=== PATIENT | male | born 1955 | race Caucasian/White ===

== ENCOUNTER → 2016-08-13 11:46 | Outpatient (CLI) | payer OTHER ==
[2016-08-13 12:37] LABS: APPEARANCE HAZY (CLEAR); BACTERIA FEW /hpf (NONE SEEN); BILIRUBIN NEGATIVE (NEGATIVE); CALCIUM OXALATE CRYSTALS OCC /hpf (NONE SEEN); COLOR YELLOW (YELLOW); EPITHELIAL CELLS 0-5 /hpf (0-5); GLUCOSE NEGATIVE (NEGATIVE); KETONE NEGATIVE (NEGATIVE); LEUKOCYTE ESTERASE 2+ (NEGATIVE); MUCUS <1+ /lpf (NONE SEEN); NITRITE NEGATIVE (NEGATIVE); PROTEIN NEGATIVE (NEGATIVE); RED CELLS - URINE OCC /hpf (0-5); SPECIFIC GRAVITY 1.015 (1.005-1.020); UROBILINOGEN NORMAL (NORMAL)
[2016-08-13 12:40] LABS: ALBUMIN 3.7 g/dL (3.4-5.0); ALKALINE PHOSPHATASE 85 U/L (46-116); ALT (SGPT) 10 U/L (10-68); BILIRUBIN - TOTAL 0.52 mg/dL (0.2-1.3); CALC OSMOLALITY 280 mosm/kg (275-300); CALCIUM 8.7 mg/dL (8.5-10.1); CARBON DIOXIDE 23.7 mmol/L (21.0-32.0); CHLORIDE - SERUM 107 mmol/L (98-107); CREATININE - SERUM 0.8 mg/dL (0.6-1.3); GLUCOSE 91 mg/dL (74-106); POTASSIUM - SERUM 3.6 mmol/L (3.5-5.1); PROTEIN - SERUM 7.2 g/dL (6.4-8.2); SODIUM 141 mmol/L (136-145); UREA NITROGEN 13 mg/dL (7-18); eGFR NON AFRICAN AMERICAN > 90 mL/min (90-120)
== END | disposition home or self-care (01) ==
LOC: D.LAB 09:00
PROVIDERS: Physical Medicine & Rehabilitation
DX: N20.0 Calculus of kidney (principal)

== ENCOUNTER 2016-12-16 07:26 | Emergency (ER) | payer MEDICARE, OTHER ==
[2016-12-16 08:19] LABS: BASOPHILS 0.4 % (0-2); EOSINOPHILS 5.6 % (0-7); HEMATOCRIT 40.7 % (42.0-54.0); IMMATURE GRANULOCYTES 0.1 % (0-5); LYMPHOCYTES 17.9 % (15-50); MCH 31.7 pg (26.0-34.0); MCHC 34.4 g/dL (31.0-37.0); MCV 92.1 fL (80.0-100.0); MEAN PLATELET VOLUME 10.5 fL (7.4-10.4); MONOCYTES 7.1 % (2-11); NEUTROPHILS 68.9 % (40-80); PLATELET COUNT 177 10x3/uL (130-400); RBC 4.42 10x6/uL (4.20-6.10); RDW 12.3 % (11.5-14.5)
[2016-12-16 08:34] LABS: ALBUMIN 3.6 g/dL (3.4-5.0); ALKALINE PHOSPHATASE 99 U/L (46-116); ALT (SGPT) 13 U/L (10-68); BILIRUBIN - TOTAL 0.19 mg/dL (0.2-1.3); CALC OSMOLALITY 282 mosm/kg (275-300); CALCIUM 8.8 mg/dL (8.5-10.1); CARBON DIOXIDE 25.8 mmol/L (21.0-32.0); CHLORIDE - SERUM 105 mmol/L (98-107); CREATININE - SERUM 0.9 mg/dL (0.6-1.3); GLUCOSE 103 mg/dL (74-106); POTASSIUM - SERUM 4.1 mmol/L (3.5-5.1); PROTEIN - SERUM 7.2 g/dL (6.4-8.2); SODIUM 141 mmol/L (136-145); UREA NITROGEN 19 mg/dL (7-18); eGFR NON AFRICAN AMERICAN > 90 mL/min (90-120)
== END 2016-12-16 08:47 | disposition home or self-care (01) ==
LOC: D.ER 07:26
PROVIDERS: Emergency Medicine
DX: R10.9 Unspecified abdominal pain (principal); K21.9 Gastro-esophageal reflux disease without esophagitis; G47.30 Sleep apnea, unspecified; F17.200 Nicotine dependence, unspecified, uncomplicated; K59.00 Constipation, unspecified; R11.10 Vomiting, unspecified

== ENCOUNTER 2017-02-12 19:37 | Emergency (ER) | payer MEDICARE, OTHER ==
[2017-02-12 20:33] LABS: APPEARANCE SLT CLOUDY (CLEAR); BILIRUBIN NEGATIVE (NEGATIVE); COLOR YELLOW (YELLOW); GLUCOSE NEGATIVE (NEGATIVE); KETONE NEGATIVE (NEGATIVE); LEUKOCYTE ESTERASE TRACE (NEGATIVE); NITRITE NEGATIVE (NEGATIVE); PROTEIN NEGATIVE (NEGATIVE); SPECIFIC GRAVITY 1.015 (1.005-1.020); UROBILINOGEN NORMAL (NORMAL)
[2017-02-12 20:34] LABS: BACTERIA FEW /hpf (NONE SEEN); EPITHELIAL CELLS RARE /hpf (0-5); WHITE CELLS - URINE 0-5 /hpf (0-5)
[2017-02-12 20:37] LABS: BASOPHILS 0.2 % (0-2); EOSINOPHILS 4.2 % (0-7); HEMATOCRIT 40.3 % (42.0-54.0); HEMOGLOBIN 13.6 g/dL (13.5-17.5); IMMATURE GRANULOCYTES 0.1 % (0-5); LYMPHOCYTES 14.2 % (15-50); MCH 31.1 pg (26.0-34.0); MCHC 33.7 g/dL (31.0-37.0); MEAN PLATELET VOLUME 10.7 fL (7.4-10.4); MONOCYTES 9.2 % (2-11); NEUTROPHILS 72.1 % (40-80); PLATELET COUNT 183 10x3/uL (130-400); RBC 4.38 10x6/uL (4.20-6.10); RDW 13.2 % (11.5-14.5)
[2017-02-12 20:54] LABS: ALBUMIN 3.7 g/dL (3.4-5.0); ALKALINE PHOSPHATASE 116 U/L (46-116); ALT (SGPT) 13 U/L (10-68); BILIRUBIN - TOTAL 0.26 mg/dL (0.2-1.3); CALC OSMOLALITY 279 mosm/kg (275-300); CALCIUM 9.1 mg/dL (8.5-10.1); CARBON DIOXIDE 27.6 mmol/L (21.0-32.0); CHLORIDE - SERUM 105 mmol/L (98-107); CREATININE - SERUM 0.9 mg/dL (0.6-1.3); GLUCOSE 96 mg/dL (74-106); POTASSIUM - SERUM 4.5 mmol/L (3.5-5.1); PROTEIN - SERUM 7.1 g/dL (6.4-8.2); SODIUM 139 mmol/L (136-145); UREA NITROGEN 17 mg/dL (7-18); eGFR NON AFRICAN AMERICAN > 90 mL/min (90-120)
== END 2017-02-12 21:20 | disposition home or self-care (01) ==
LOC: D.ER 19:37
PROVIDERS: Family Medicine
DX: N41.9 Inflammatory disease of prostate, unspecified (principal); K21.9 Gastro-esophageal reflux disease without esophagitis

== ENCOUNTER 2017-04-02 12:33 | Emergency (ER) | payer MEDICARE, OTHER | END 2017-04-02 15:57 | disposition home or self-care (01) | LOC: D.ER 12:33 | DX: S99.922A Unspecified injury of left foot, initial encounter (principal); W01.0XXA Fall on same level from slipping, tripping and stumbling without subsequent striking against object, initial encounter; Y93.K1 Activity, walking an animal; Y92.027 Garden or yard of mobile home as the place of occurrence of the external cause; K21.9 Gastro-esophageal reflux disease without esophagitis ==

== ENCOUNTER 2017-04-11 22:46 | Emergency (ER) | payer MEDICARE, OTHER ==
[2017-04-11 23:40] LABS: BASOPHILS 0.2 % (0-2); EOSINOPHILS 3.4 % (0-7); HEMATOCRIT 35.4 % (42.0-54.0); HEMOGLOBIN 12.1 g/dL (13.5-17.5); IMMATURE GRANULOCYTES 0.3 % (0-5); MCH 31.4 pg (26.0-34.0); MCHC 34.2 g/dL (31.0-37.0); MCV 91.9 fL (80.0-100.0); MEAN PLATELET VOLUME 10.1 fL (7.4-10.4); MONOCYTES 10.9 % (2-11); NEUTROPHILS 81.2 % (40-80); RBC 3.85 10x6/uL (4.20-6.10); RDW 13.3 % (11.5-14.5); WBC 6.3 10x3/uL (4.8-10.8)
[2017-04-11 23:42] LABS: PLATELET COUNT 140 10x3/uL (130-400)
[2017-04-12 00:06] LABS: ALBUMIN 3.2 g/dL (3.4-5.0); ALKALINE PHOSPHATASE 86 U/L (46-116); ALT (SGPT) 33 U/L (10-68); CALC OSMOLALITY 283 mosm/kg (275-300); CALCIUM 8.3 mg/dL (8.5-10.1); CARBON DIOXIDE 25.6 mmol/L (21.0-32.0); CHLORIDE - SERUM 106 mmol/L (98-107); CREATININE - SERUM 0.9 mg/dL (0.6-1.3); GLUCOSE 105 mg/dL (74-106); LIPASE 129 U/L (73-393); POTASSIUM - SERUM 3.5 mmol/L (3.5-5.1); PROTEIN - SERUM 6.4 g/dL (6.4-8.2); SODIUM 142 mmol/L (136-145); UREA NITROGEN 15 mg/dL (7-18); eGFR NON AFRICAN AMERICAN > 90 mL/min (90-120)
[2017-04-12 00:11] LABS: APPEARANCE CLEAR (CLEAR); BILIRUBIN NEGATIVE (NEGATIVE); COLOR YELLOW (YELLOW); GLUCOSE NEGATIVE (NEGATIVE); KETONE NEGATIVE (NEGATIVE); NITRITE NEGATIVE (NEGATIVE); PROTEIN NEGATIVE (NEGATIVE); UROBILINOGEN NORMAL (NORMAL)
[2017-04-12 00:14] LABS: BACTERIA MODERATE /hpf (NONE SEEN); EPITHELIAL CELLS 0-5 /hpf (0-5); RED CELLS - URINE 0-5 /hpf (0-5); WHITE CELLS - URINE NSEEN /hpf (0-5)
== END 2017-04-12 03:13 | disposition home or self-care (01) ==
LOC: D.ER 22:46
PROVIDERS: Emergency Medicine
DX: R10.9 Unspecified abdominal pain (principal); K21.9 Gastro-esophageal reflux disease without esophagitis; F17.200 Nicotine dependence, unspecified, uncomplicated

== ENCOUNTER 2017-07-14 03:38 | Emergency (ER) | payer MEDICARE, OTHER ==
[2017-07-14 05:26] LABS: BASOPHILS 0.4 % (0-2); EOSINOPHILS 2.5 % (0-7); HEMATOCRIT 40.2 % (42.0-54.0); HEMOGLOBIN 13.9 g/dL (13.5-17.5); IMMATURE GRANULOCYTES 0.1 % (0-5); LYMPHOCYTES 19.2 % (15-50); MCHC 34.6 g/dL (31.0-37.0); MCV 89.7 fL (80.0-100.0); MEAN PLATELET VOLUME 10.1 fL (7.4-10.4); MONOCYTES 6.9 % (2-11); NEUTROPHILS 70.9 % (40-80); RBC 4.48 10x6/uL (4.20-6.10); RDW 13.2 % (11.5-14.5); WBC 7.3 10x3/uL (4.8-10.8)
[2017-07-14 05:30] LABS: PLATELET COUNT 179 10x3/uL (130-400)
[2017-07-14 05:37] LABS: ALBUMIN 3.8 g/dL (3.4-5.0); ANION GAP 14.3 mmol/L (8-16); BILIRUBIN - TOTAL 0.4 mg/dL (0.2-1.3); CALCIUM 9.1 mg/dL (8.5-10.1); CARBON DIOXIDE 22.6 mmol/L (21.0-32.0); CREATININE - SERUM 1.2 mg/dL (0.6-1.3); POTASSIUM - SERUM 3.9 mmol/L (3.5-5.1); PROTEIN - SERUM 7.5 g/dL (6.4-8.2)
[2017-07-14 06:54] LABS: APPEARANCE CLEAR (CLEAR); BILIRUBIN NEGATIVE (NEGATIVE); COLOR YELLOW (YELLOW); GLUCOSE NEGATIVE (NEGATIVE); KETONE NEGATIVE (NEGATIVE); NITRITE NEGATIVE (NEGATIVE); PROTEIN NEGATIVE (NEGATIVE); SPECIFIC GRAVITY 1.015 (1.005-1.020); UROBILINOGEN NORMAL (NORMAL)
[2017-07-14 06:55] LABS: WHITE CELLS - URINE 0-5 /hpf (0-5)
[2017-07-14 06:56] LABS: BACTERIA FEW /hpf (NONE SEEN); CALCIUM OXALATE CRYSTALS 0-5 /hpf (NONE SEEN); EPITHELIAL CELLS 0-5 /hpf (0-5); HYALINE CAST RARE /lpf (NONE SEEN); MUCUS <1+ /lpf (NONE SEEN); RED CELLS - URINE OCC /hpf (0-5)
== END 2017-07-14 07:14 | disposition home or self-care (01) ==
LOC: D.ER 03:38
PROVIDERS: Family Medicine
DX: R10.9 Unspecified abdominal pain (principal); K21.9 Gastro-esophageal reflux disease without esophagitis; F17.200 Nicotine dependence, unspecified, uncomplicated

== ENCOUNTER 2017-09-12 07:36 | Emergency (ER) | payer MEDICARE, OTHER ==
[2017-09-12 08:17] LABS: BASOPHILS 0.3 % (0-2); EOSINOPHILS 2.4 % (0-7); HEMATOCRIT 42.2 % (42.0-54.0); HEMOGLOBIN 14.6 g/dL (13.5-17.5); IMMATURE GRANULOCYTES 0.2 % (0-5); LYMPHOCYTES 11.3 % (15-50); MCHC 34.6 g/dL (31.0-37.0); MCV 89.6 fL (80.0-100.0); MEAN PLATELET VOLUME 9.9 fL (7.4-10.4); MONOCYTES 6.5 % (2-11); NEUTROPHILS 79.3 % (40-80); PLATELET COUNT 166 10x3/uL (130-400); RBC 4.71 10x6/uL (4.20-6.10); WBC 10.5 10x3/uL (4.8-10.8)
[2017-09-12 08:37] LABS: ALBUMIN 3.6 g/dL (3.4-5.0); ALKALINE PHOSPHATASE 111 U/L (46-116); ALT (SGPT) 15 U/L (10-68); BILIRUBIN - TOTAL 0.42 mg/dL (0.2-1.3); CALC OSMOLALITY 278 mosm/kg (275-300); CALCIUM 8.9 mg/dL (8.5-10.1); CARBON DIOXIDE 22.4 mmol/L (21.0-32.0); CHLORIDE - SERUM 106 mmol/L (98-107); GLUCOSE 110 mg/dL (74-106); LIPASE 83 U/L (73-393); POTASSIUM - SERUM 3.6 mmol/L (3.5-5.1); PROTEIN - SERUM 7.4 g/dL (6.4-8.2); SODIUM 139 mmol/L (136-145); UREA NITROGEN 13 mg/dL (7-18); eGFR NON AFRICAN AMERICAN 80 mL/min (90-120)
[2017-09-12 09:16] LABS: APPEARANCE HAZY (CLEAR); BILIRUBIN NEGATIVE (NEGATIVE); COLOR YELLOW (YELLOW); GLUCOSE NEGATIVE (NEGATIVE); KETONE NEGATIVE (NEGATIVE); NITRITE NEGATIVE (NEGATIVE); PROTEIN NEGATIVE (NEGATIVE); SPECIFIC GRAVITY 1.015 (1.005-1.020); UROBILINOGEN NORMAL (NORMAL)
[2017-09-12 09:20] LABS: BACTERIA MODERATE /hpf (NONE SEEN); EPITHELIAL CELLS 0-5 /hpf (0-5); MUCUS >1+ /lpf (NONE SEEN)
[2017-10-15] MEDS ORDERED: VIBRAMYCIN 100100 MG PO (03:19)
[2017-10-24 20:42] VITALS: BMI 20.4
== END 2017-09-12 09:50 | disposition home or self-care (01) ==
LOC: D.ER 07:36
PROVIDERS: Emergency Medicine
DX: R10.9 Unspecified abdominal pain (principal); N39.0 Urinary tract infection, site not specified; K21.9 Gastro-esophageal reflux disease without esophagitis

== ENCOUNTER 2017-09-22 05:58 | Emergency (ER) | payer MEDICARE, OTHER ==
[2017-09-22 06:24] LABS: BASOPHILS 0.4 % (0-2); EOSINOPHILS 3.5 % (0-7); HEMATOCRIT 43.2 % (42.0-54.0); HEMOGLOBIN 14.6 g/dL (13.5-17.5); IMMATURE GRANULOCYTES 0.1 % (0-5); LYMPHOCYTES 22.7 % (15-50); MCH 30.6 pg (26.0-34.0); MCHC 33.8 g/dL (31.0-37.0); MCV 90.6 fL (80.0-100.0); MONOCYTES 6.2 % (2-11); NEUTROPHILS 67.1 % (40-80); PLATELET COUNT 178 10x3/uL (130-400); RBC 4.77 10x6/uL (4.20-6.10); RDW 13.2 % (11.5-14.5); WBC 8.6 10x3/uL (4.8-10.8)
[2017-09-22 06:47] LABS: ALBUMIN 3.7 g/dL (3.4-5.0); ANION GAP 17.2 mmol/L (8-16); BILIRUBIN - TOTAL 0.2 mg/dL (0.2-1.3); CALCIUM 9.1 mg/dL (8.5-10.1); CARBON DIOXIDE 22.8 mmol/L (21.0-32.0); CREATININE - SERUM 1.2 mg/dL (0.6-1.3); MAGNESIUM - SERUM 2.1 mg/dL (1.8-2.4); PROTEIN - SERUM 7.6 g/dL (6.4-8.2)
[2017-09-22 07:07] LABS: APPEARANCE HAZY (CLEAR); BACTERIA FEW /hpf (NONE SEEN); COLOR ORANGE (YELLOW); EPITHELIAL CELLS 0-5 /hpf (0-5); WHITE CELLS - URINE 0-5 /hpf (0-5)
[2017-09-22 07:08] LABS: MUCUS <1+ /lpf (NONE SEEN)
[2017-09-22 07:20] LABS: AMYLASE - SERUM 57 U/L (25-115); LIPASE 116 U/L (73-393)
[2017-10-15] MEDS ORDERED: VIBRAMYCIN 100100 MG PO (03:19)
[2017-10-24 20:42] VITALS: BMI 20.4
== END 2017-09-22 09:50 | disposition home or self-care (01) ==
LOC: D.ER 05:58
PROVIDERS: Emergency Medicine; Family Medicine
DX: R11.10 Vomiting, unspecified (principal); R19.7 Diarrhea, unspecified; R10.9 Unspecified abdominal pain; R30.0 Dysuria; N30.90 Cystitis, unspecified without hematuria; K21.9 Gastro-esophageal reflux disease without esophagitis; F17.200 Nicotine dependence, unspecified, uncomplicated

== ENCOUNTER 2017-09-24 09:59 | Emergency (ER) | payer MEDICARE, OTHER ==
[2017-09-24 10:49] LABS: APPEARANCE HAZY (CLEAR); COLOR ORANGE (YELLOW)
[2017-09-24 10:51] LABS: BACTERIA FEW /hpf (NONE SEEN); EPITHELIAL CELLS 0-5 /hpf (0-5); MUCUS <1+ /lpf (NONE SEEN); RED CELLS - URINE 0-5 /hpf (0-5); WHITE CELLS - URINE 0-5 /hpf (0-5)
[2017-10-15] MEDS ORDERED: VIBRAMYCIN 100100 MG PO (03:19)
[2017-10-24 20:42] VITALS: BMI 20.4
== END 2017-09-24 12:45 | disposition home or self-care (01) ==
LOC: D.ER 09:59
PROVIDERS: Emergency Medicine
DX: N39.0 Urinary tract infection, site not specified (principal); Z87.448 Personal history of other diseases of urinary system; K21.9 Gastro-esophageal reflux disease without esophagitis; F17.200 Nicotine dependence, unspecified, uncomplicated

== ENCOUNTER 2017-10-03 01:17 | Emergency (ER) | payer MEDICARE, OTHER ==
[2017-10-03 01:44] LABS: APPEARANCE CLEAR (CLEAR); BILIRUBIN NEGATIVE (NEGATIVE); COLOR YELLOW (YELLOW); GLUCOSE NEGATIVE (NEGATIVE); KETONE NEGATIVE (NEGATIVE); NITRITE NEGATIVE (NEGATIVE); PROTEIN NEGATIVE (NEGATIVE); UROBILINOGEN NORMAL (NORMAL)
[2017-10-03 01:55] LABS: BASOPHILS 0.3 % (0-2); EOSINOPHILS 4.2 % (0-7); HEMATOCRIT 41.6 % (42.0-54.0); HEMOGLOBIN 14.3 g/dL (13.5-17.5); IMMATURE GRANULOCYTES 0.1 % (0-5); LYMPHOCYTES 21.8 % (15-50); MCH 31.2 pg (26.0-34.0); MCHC 34.4 g/dL (31.0-37.0); MCV 90.6 fL (80.0-100.0); MONOCYTES 5.8 % (2-11); NEUTROPHILS 67.8 % (40-80); PLATELET COUNT 171 10x3/uL (130-400); RBC 4.59 10x6/uL (4.20-6.10); RDW 13.1 % (11.5-14.5); WBC 6.7 10x3/uL (4.8-10.8)
[2017-10-03 02:12] LABS: ALBUMIN 3.8 g/dL (3.4-5.0); BILIRUBIN - TOTAL 0.2 mg/dL (0.2-1.3); CALCIUM 8.9 mg/dL (8.5-10.1); CARBON DIOXIDE 23.4 mmol/L (21.0-32.0); CREATININE - SERUM 1.2 mg/dL (0.6-1.3); POTASSIUM - SERUM 3.4 mmol/L (3.5-5.1); PROTEIN - SERUM 7.6 g/dL (6.4-8.2)
[2017-10-15] MEDS ORDERED: VIBRAMYCIN 100100 MG PO (03:19)
[2017-10-24 20:42] VITALS: BMI 20.4
== END 2017-10-03 03:19 | disposition home or self-care (01) ==
LOC: D.ER 01:17
PROVIDERS: Family Medicine
DX: R10.9 Unspecified abdominal pain (principal); N23 Unspecified renal colic; N20.1 Calculus of ureter; K21.9 Gastro-esophageal reflux disease without esophagitis

== ENCOUNTER 2017-10-23 08:16 | Emergency (ER) | payer MEDICARE, OTHER ==
[~2017-10-23 08:16] MED LIST: VIBRAMYCIN 100100 MG PO
[2017-10-23 08:52] LABS: APPEARANCE CLEAR (CLEAR); BILIRUBIN NEGATIVE (NEGATIVE); COLOR YELLOW (YELLOW); GLUCOSE NEGATIVE (NEGATIVE); KETONE NEGATIVE (NEGATIVE); NITRITE NEGATIVE (NEGATIVE); PROTEIN NEGATIVE (NEGATIVE); UROBILINOGEN NORMAL (NORMAL)
[2017-10-23 08:53] LABS: BACTERIA FEW /hpf (NONE SEEN); CALCIUM OXALATE CRYSTALS 0-5 /hpf (NONE SEEN); EPITHELIAL CELLS 0-5 /hpf (0-5); MUCUS <1+ /lpf (NONE SEEN); RED CELLS - URINE 0-5 /hpf (0-5); WHITE CELLS - URINE 0-5 /hpf (0-5)
[2017-10-23 10:54] LABS: BASOPHILS 0.1 % (0-2); EOSINOPHILS 1.2 % (0-7); HEMATOCRIT 42.4 % (42.0-54.0); HEMOGLOBIN 14.4 g/dL (13.5-17.5); IMMATURE GRANULOCYTES 0.1 % (0-5); LYMPHOCYTES 12.4 % (15-50); MCH 30.8 pg (26.0-34.0); MCV 90.6 fL (80.0-100.0); MEAN PLATELET VOLUME 10.3 fL (7.4-10.4); MONOCYTES 6.2 % (2-11); PLATELET COUNT 167 10x3/uL (130-400); RBC 4.68 10x6/uL (4.20-6.10); RDW 13.1 % (11.5-14.5); WBC 8.4 10x3/uL (4.8-10.8)
[2017-10-23 11:10] LABS: ALBUMIN 3.5 g/dL (3.4-5.0); ALKALINE PHOSPHATASE 97 U/L (46-116); ALT (SGPT) 19 U/L (10-68); BILIRUBIN - TOTAL 0.28 mg/dL (0.2-1.3); CALC OSMOLALITY 281 mosm/kg (275-300); CALCIUM 8.7 mg/dL (8.5-10.1); CARBON DIOXIDE 25.9 mmol/L (21.0-32.0); CHLORIDE - SERUM 107 mmol/L (98-107); CREATININE - SERUM 0.9 mg/dL (0.6-1.3); GLUCOSE 99 mg/dL (74-106); POTASSIUM - SERUM 4.4 mmol/L (3.5-5.1); PROTEIN - SERUM 7.2 g/dL (6.4-8.2); SODIUM 141 mmol/L (136-145); UREA NITROGEN 14 mg/dL (7-18); eGFR NON AFRICAN AMERICAN > 90 mL/min (90-120)
[2017-10-24] MEDS ORDERED: VIBRAMYCIN 100100 MG PO (02:59)
[2017-10-24] MEDS ORDERED: GABAPENTIN100 MG PO (03:00)
[2017-10-24] MEDS ORDERED: ATARAX 25 MG TA25 MG PO ×2 (03:03→03:05)
[2017-10-24] MEDS ORDERED: BENTYL10 MG PO (03:04)
[2017-10-24] MEDS ORDERED: PROTONIX40 MG PO (03:07)
[2017-10-24] MEDS ORDERED: ZOFRAN4 MG PO (03:07)
[2017-10-24] MEDS ORDERED: MIRALAX527 GM PO (03:09)
[2017-10-24] MEDS ORDERED: INDERAL LA120 MG PO (03:10)
[2017-10-24] MEDS ORDERED: ZANTAC150 MG PO (03:11)
[2017-10-24] MEDS ORDERED: NATURAL SENNA8.6 MG PO (03:12)
[2017-10-24] MEDS ORDERED: ZOLOFT100 MG PO (03:13)
[2017-10-24] MEDS ORDERED: FLOMAX0.4 MG PO (03:14)
[2017-10-24] MEDS ORDERED: CRANBERRY 400 M1 TA1 PO (03:15)
[2017-10-24] MEDS ORDERED: CIPRO500 MG PO (03:20)
[2017-10-24] MEDS ORDERED: LEVAQUIN500 MG PO (10:37)
[2017-11-18 19:40] VITALS: BMI 23.1
== END 2017-10-23 12:45 | disposition home or self-care (01) ==
LOC: D.ER 08:16
PROVIDERS: Emergency Medicine
DX: N40.0 Benign prostatic hyperplasia without lower urinary tract symptoms (principal)

== ENCOUNTER 2017-10-23 21:41 | Observation (INO) | payer MEDICARE, OTHER ==
[~2017-10-23] VITALS: Ht 188 cm; Wt 81.8 kg
[2017-10-23 22:45] LABS: BASOPHILS 0.2 % (0-2); EOSINOPHILS 3.1 % (0-7); HEMATOCRIT 43.1 % (42.0-54.0); HEMOGLOBIN 15.1 g/dL (13.5-17.5); IMMATURE GRANULOCYTES 0.2 % (0-5); LYMPHOCYTES 14.1 % (15-50); MCH 31.5 pg (26.0-34.0); MCV 89.8 fL (80.0-100.0); MEAN PLATELET VOLUME 10.1 fL (7.4-10.4); MONOCYTES 8.4 % (2-11); PLATELET COUNT 191 10x3/uL (130-400); RDW 13.1 % (11.5-14.5); WBC 9.8 10x3/uL (4.8-10.8)
[2017-10-23 22:53] LABS: APPEARANCE CLEAR (CLEAR); BILIRUBIN NEGATIVE (NEGATIVE); COLOR YELLOW (YELLOW); GLUCOSE NEGATIVE (NEGATIVE); KETONE NEGATIVE (NEGATIVE); NITRITE NEGATIVE (NEGATIVE); PROTEIN NEGATIVE (NEGATIVE); UROBILINOGEN NORMAL (NORMAL)
[2017-10-23 23:04] LABS: ALBUMIN 3.8 g/dL (3.4-5.0); ALKALINE PHOSPHATASE 102 U/L (46-116); ALT (SGPT) 19 U/L (10-68); CALC OSMOLALITY 283 mosm/kg (275-300); CARBON DIOXIDE 24.3 mmol/L (21.0-32.0); CHLORIDE - SERUM 105 mmol/L (98-107); CREATININE - SERUM 0.9 mg/dL (0.6-1.3); GLUCOSE 112 mg/dL (74-106); PROTEIN - SERUM 7.5 g/dL (6.4-8.2); SODIUM 142 mmol/L (136-145); UREA NITROGEN 13 mg/dL (7-18); eGFR NON AFRICAN AMERICAN > 90 mL/min (90-120)
[2017-10-24] MEDS ORDERED: VIBRAMYCIN 100100 MG PO (02:59)
[2017-10-24] MEDS ORDERED: GABAPENTIN100 MG PO (03:00)
[2017-10-24] MEDS ORDERED: ATARAX 25 MG TA25 MG PO ×2 (03:03→03:05)
[2017-10-24] MEDS ORDERED: BENTYL10 MG PO (03:04)
[2017-10-24] MEDS ORDERED: ZOFRAN4 MG PO (03:07)
[2017-10-24] MEDS ORDERED: PROTONIX40 MG PO (03:07)
[2017-10-24] MEDS ORDERED: MIRALAX527 GM PO (03:09)
[2017-10-24] MEDS ORDERED: INDERAL LA120 MG PO (03:10)
[2017-10-24] MEDS ORDERED: ZANTAC150 MG PO (03:11)
[2017-10-24] MEDS ORDERED: NATURAL SENNA8.6 MG PO (03:12)
[2017-10-24] MEDS ORDERED: ZOLOFT100 MG PO (03:13)
[2017-10-24] MEDS ORDERED: FLOMAX0.4 MG PO (03:14)
[2017-10-24] MEDS ORDERED: CRANBERRY 400 M1 TA1 PO (03:15)
[2017-10-24] MEDS ORDERED: CIPRO500 MG PO (03:20)
[2017-10-24 03:26] VITALS: BP 114/71; BMI 23.1
[2017-10-24 06:01] VITALS: BP 110/67
[2017-10-24 08:53] VITALS: BP 131/83
[2017-10-24] MEDS ORDERED: LEVAQUIN500 MG PO (10:37)
[2017-10-24 10:39] VITALS: Ht 188 cm; Wt 81.8 kg
== END 2017-10-24 12:27 | disposition home or self-care (01) ==
LOC: D.ER 21:41 → D.M2 10-24 02:01 → D.ER 10-24 02:01 → D.M2 10-24 02:01 → OBSVTIME 10-24 02:01 → D.EDHOLD 10-24 02:01 → D.M2 10-24 02:07
PROVIDERS: Physician Assistant
DX: A08.4 Viral intestinal infection, unspecified (principal); K58.9 Irritable bowel syndrome, unspecified; N40.0 Benign prostatic hyperplasia without lower urinary tract symptoms; K21.9 Gastro-esophageal reflux disease without esophagitis; F32.9 Major depressive disorder, single episode, unspecified; F41.9 Anxiety disorder, unspecified; F17.203 Nicotine dependence unspecified, with withdrawal; K57.90 Diverticulosis of intestine, part unspecified, without perforation or abscess without bleeding

== ENCOUNTER 2017-10-24 20:28 | Emergency (ER) | payer MEDICARE, OTHER ==
[~2017-10-24] VITALS: Ht 188 cm; Wt 72.3 kg
[~2017-10-24 20:28] MED LIST changes: +ATARAX 25 MG TA25 MG PO; +BENTYL10 MG PO; +CIPRO500 MG PO; +CRANBERRY 400 M1 TA1 PO; +FLOMAX0.4 MG PO; +GABAPENTIN100 MG PO; +INDERAL LA120 MG PO; +LEVAQUIN500 MG PO; +MIRALAX527 GM PO; +NATURAL SENNA8.6 MG PO; +PROTONIX40 MG PO; +ZANTAC150 MG PO; +ZOFRAN4 MG PO; +ZOLOFT100 MG PO
[2017-10-24 20:42] VITALS: BP 129/72; Ht 188 cm; Wt 72.3 kg
[2017-10-24 21:22] LABS: BASOPHILS 0.3 % (0-2); EOSINOPHILS 2.3 % (0-7); HEMATOCRIT 40.1 % (42.0-54.0); IMMATURE GRANULOCYTES 0.3 % (0-5); LYMPHOCYTES 16.1 % (15-50); MCH 31.3 pg (26.0-34.0); MCHC 34.9 g/dL (31.0-37.0); MCV 89.5 fL (80.0-100.0); MONOCYTES 7.1 % (2-11); NEUTROPHILS 73.9 % (40-80); PLATELET COUNT 170 10x3/uL (130-400); RBC 4.48 10x6/uL (4.20-6.10); RDW 13.1 % (11.5-14.5); WBC 7.9 10x3/uL (4.8-10.8)
[2017-10-24 21:27] LABS: APPEARANCE CLEAR (CLEAR); BILIRUBIN NEGATIVE (NEGATIVE); COLOR YELLOW (YELLOW); GLUCOSE NEGATIVE (NEGATIVE); KETONE NEGATIVE (NEGATIVE); NITRITE NEGATIVE (NEGATIVE); PROTEIN NEGATIVE (NEGATIVE); SPECIFIC GRAVITY 1.015 (1.005-1.020); UROBILINOGEN NORMAL (NORMAL)
[2017-10-24 21:28] LABS: BACTERIA FEW /hpf (NONE SEEN); RED CELLS - URINE OCC /hpf (0-5); WHITE CELLS - URINE 0-5 /hpf (0-5)
[2017-10-24 21:35] LABS: ALBUMIN 3.4 g/dL (3.4-5.0); ALKALINE PHOSPHATASE 86 U/L (46-116); ALT (SGPT) 17 U/L (10-68); BILIRUBIN - TOTAL 0.35 mg/dL (0.2-1.3); CALC OSMOLALITY 279 mosm/kg (275-300); CALCIUM 9.2 mg/dL (8.5-10.1); CARBON DIOXIDE 25.5 mmol/L (21.0-32.0); CHLORIDE - SERUM 105 mmol/L (98-107); CREATININE - SERUM 0.9 mg/dL (0.6-1.3); GLUCOSE 105 mg/dL (74-106); LIPASE 87 U/L (73-393); POTASSIUM - SERUM 3.8 mmol/L (3.5-5.1); PROTEIN - SERUM 6.9 g/dL (6.4-8.2); SODIUM 140 mmol/L (136-145); UREA NITROGEN 15 mg/dL (7-18); eGFR NON AFRICAN AMERICAN > 90 mL/min (90-120)
== END 2017-10-24 22:15 | disposition home or self-care (01) ==
LOC: D.ER 20:28
PROVIDERS: Family Medicine
DX: R10.9 Unspecified abdominal pain (principal)

== ENCOUNTER 2017-11-18 19:27 | Emergency (ER) | payer MEDICARE, OTHER ==
[~2017-11-18] VITALS: Ht 188 cm; Wt 81.8 kg
[2017-11-18 19:40] VITALS: Ht 188 cm; Wt 81.8 kg
[2017-11-18 20:05] LABS: APPEARANCE CLEAR (CLEAR); BILIRUBIN NEGATIVE (NEGATIVE); COLOR YELLOW (YELLOW); GLUCOSE NEGATIVE (NEGATIVE); KETONE NEGATIVE (NEGATIVE); NITRITE NEGATIVE (NEGATIVE); PROTEIN NEGATIVE (NEGATIVE); UROBILINOGEN NORMAL (NORMAL)
[2017-11-18 20:06] LABS: BACTERIA MODERATE /hpf (NONE SEEN); RED CELLS - URINE 0-5 /hpf (0-5)
[2017-11-18 20:13] LABS: BASOPHILS 0.4 % (0-2); EOSINOPHILS 4.3 % (0-7); HEMATOCRIT 44.7 % (42.0-54.0); HEMOGLOBIN 15.2 g/dL (13.5-17.5); IMMATURE GRANULOCYTES 0.1 % (0-5); LYMPHOCYTES 13.3 % (15-50); MCV 91.2 fL (80.0-100.0); MEAN PLATELET VOLUME 11.1 fL (7.4-10.4); NEUTROPHILS 73.9 % (40-80); PLATELET COUNT 179 10x3/uL (130-400); RDW 13.1 % (11.5-14.5); WBC 10.1 10x3/uL (4.8-10.8)
[2017-11-18 20:26] LABS: ALBUMIN 3.8 g/dL (3.4-5.0); ANION GAP 14.7 mmol/L (8-16); BILIRUBIN - TOTAL 0.24 mg/dL (0.2-1.3); CALCIUM 9.8 mg/dL (8.5-10.1); CARBON DIOXIDE 27.4 mmol/L (21.0-32.0); CREATININE - SERUM 1.1 mg/dL (0.6-1.3); POTASSIUM - SERUM 4.1 mmol/L (3.5-5.1); PROTEIN - SERUM 8.1 g/dL (6.4-8.2)
[2017-11-18] MEDS ORDERED: ZOFRAN ODT4 MG/UDTAB PO (21:48)
[2017-11-18] MEDS ORDERED: MACROBID100 MG PO (21:48)
[2017-11-18] MEDS ORDERED: BENTYL 20 MG TA20 MG PO (21:48)
[2017-11-19 00:26] VITALS: BP 122/77
== END 2017-11-19 01:21 | disposition home or self-care (01) ==
LOC: D.ER 19:27
PROVIDERS: Family Medicine
DX: N39.0 Urinary tract infection, site not specified (principal); R11.2 Nausea with vomiting, unspecified; F17.200 Nicotine dependence, unspecified, uncomplicated